=== PATIENT | female | born 1990 | race Caucasian/White ===

== ENCOUNTER 2024-07-29 08:47 | Outpatient (CLI) | payer OTHER, SELFPAY ==
--- OUTSIDE RECORDS SUMMARY | 2024-07-29 09:13 | XMS_ITS | Encounter Summary ---
Author Organization [facility] Facility Care Team Providers Care Web Services Professional Name Role Phone Unknown, Notinfile Primary Care Provider Unavail able Unknown, Notinfile Primary Care Provider Unavail able Radha Cordova MD Unavailable [phone] Иван Lucas MD Primary Care Provide r Radha Cordova MD Unavailable [phone] Divine Almaraz Primary Care Provider + Encounter Details Date Type Department Care Team (Latest Contact Info) Description 12/07/2017 Orders Only [facility]INCON[facility] Provider, MD Hanna [address] [place] [id number] Social History Tobacco Use Types Packs/Day Years Used Date Smoking Tobacco: Never Assessed Comments Unknown Sex and Gender Information Value Date Recorded Sex Assigned at Not on file Legal Sex Female 8:45 PM CURTAIN CUTTER Gender Identity Not on file Sexual Orientation Straight 04/22/2020 1: 46 PM CURTAIN CUTTER documented as of this encounter Plan of Treatment Not on file documented as of this encounter Procedures Procedure Name Priority Date/Time Associated Diagnosis Comments SCAN - LABS 12/09/2017 12:00 AM CDT documented in this encounter Results * SCAN - LABS (12/09/2017 12:00 AM CDT) Narrative 12/09/2017 12:00 AM CDT Ordered by an unspecified provider. us Historical Provider Final Res ult documented in this encounter Visit Diagnoses Not on filedocumented in this encounter Care Teams Web Services Professional Relationship Specialty Start Date End Date Unknown, Notinfile PCP - General 12/03/19 01/31/20 Unknown, Notinfile PCP - General 02/01/20 04/27/20 Иван Lucas MD PCP - General 04/28/20 11/26/23 Divine Almaraz PA [address] [address] PCP - General Family Medicine 11/27/23 Radha Cordova MD Consulting Physician Obstetrics and Gynecology 04/20/20 08/05/22 Radha Cordova MD Consulting Physician Obstetrics and Gynecology 08/06/22 documented as of this encounter
--- OUTSIDE RECORDS SUMMARY | 2024-07-29 09:13 | XMS_ITS | Clinical Summary ---
Author Organization [facility] [address] [facility] [address] [place] [address] Phone Care Team Providers Care Gauge Checker Name Role Phone Unavailable Primary Care Provider Unavailabl e Allergies Active Allergy Reactions Criticality Noted Date Comments Gluten Nausea and Vomiting,Headache Low 020 Medications PNV no.133/ferrous fum/folic ( ORAL) Take by mouth. Active Active Problems Problem Noted Date Diagnosed Date History of severe pre-eclampsia 11/16/2019 Comments Yes Family History Medical History Relation Name Comments Diabetes Mother Heart Disease Mother Breast Cancer Neg Hx Colon Cancer Neg Hx Ovarian Cancer Neg Hx Relation Name Status Comments Father Alive Mother Social History Tobacco Use Types Packs/Day Years Used Date Smoking Tobacco: Never Smokeless Tobacco: Never Alcohol Use Standard Drinks/Week Comments Not Currently 0 (1 standard drink = 0.6 oz pur e alcohol) Comments Yes Sex and Gender Information Value Date Recorded Sex Assigned at Not on file Legal Sex Female 9:24 AM CDT Gender Identity Not on file Sexual Orientation Not on file Last Filed Vital Signs Vital Sign Reading Time Taken Comments Blood Pressure 127/87 11/16/2019 10:19 AM CDT Pulse - - Temperature - - Respiratory Rate - - Oxygen Saturation - - Inhaled Oxygen Concentration - - Weight 47.8 kg (105 lb 6.4 oz) 11/16/2019 10:19 AM CDT Height 160 cm (5' 3) 11/16/2019 10:19 AM CDT Body Mass Index 18.67 11/16/2019 10:19 AM CDT Plan of Treatment Health Maintenance Due Date Last Done Comments DTAP/TDAP/TD VACCINES (1 - Tdap) 2008 HEPATITIS B VACCINES (1 of 3 - 19+ 3-dose series) 2008 HPV/Cotest (21-29) 2010 CERVICAL CANCER SCREENING 10/26/2019 HPV/Cotest (30-65) 10/26/2019 PAP SMEAR 10/26/2019 INFLUENZA VACCINE (#1) 2023 RSV VACCINE (60+ or ) (1 - 1-dose 75+ series) 2064 HPV VACCINES Aged Out No longer eligi ble based on patient's age to complete this topic Insurance
--- OUTSIDE RECORDS SUMMARY | 2024-07-29 09:13 | XMS_ITS | Encounter Summary ---
Author Organization [facility] Facility Care Team Providers Care Tube Puller Name Role Phone Unknown, Notinfile Primary Care Provider Unavail able Unknown, Notinfile Primary Care Provider Unavail able Radha Cordova MD Unavailable [phone] Иван Lucas MD Primary Care Provide r Radha Cordova MD Unavailable [phone] Divine Almaraz Primary Care Provider + Encounter Details Date Type Department Care Team (Latest Contact Info) Description 12/05/2017 Orders Only [facility] CLINCONV Provider, MD Hanna [address] [place] [id number] Social History Tobacco Use Types Packs/Day Years Used Date Smoking Tobacco: Never Assessed Comments Unknown Sex and Gender Information Value Date Recorded Sex Assigned at Not on file Legal Sex Female 8:45 PM PHARMACY CLINICAL SPECIALIST Gender Identity Not on file Sexual Orientation Straight 04/22/2020 1: 46 PM PHARMACY CLINICAL SPECIALIST documented as of this encounter Plan of Treatment Not on file documented as of this encounter Procedures Procedure Name Priority Date/Time Associated Diagnosis Comments SCAN - LABS 12/05/2017 12:00 AM CDT documented in this encounter Results * SCAN - LABS (12/05/2017 12:00 AM CDT) Narrative 12/05/2017 12:00 AM CDT Ordered by an unspecified provider. us Historical Provider Final Res ult documented in this encounter Visit Diagnoses Not on filedocumented in this encounter Care Teams Tube Puller Relationship Specialty Start Date End Date Unknown, Notinfile PCP - General 12/03/19 01/31/20 Unknown, Notinfile PCP - General 02/01/20 04/27/20 Иван Lucas MD PCP - General 04/28/20 11/26/23 Divine Almaraz PA [address] [address] PCP - General Family Medicine 11/27/23 Radha Cordova MD Consulting Physician Obstetrics and Gynecology 04/20/20 08/05/22 Radha Cordova MD Consulting Physician Obstetrics and Gynecology 08/06/22 documented as of this encounter
--- OUTSIDE RECORDS SUMMARY | 2024-07-29 09:13 | XMS_ITS | Referral Summary ---
Author Organization [facility] Address [address] [place] [address] Care Team Providers Care Metal Fabricator Welder Name Role Phone Radha Cordova MD Unavailable [phone] Divine Almaraz Primary Care Provider + Encounters Date Type Department Care Team Description 05/05/2024 3:00 PM CDT Office Visit [facility] Family Medicine [address] [address] Supriya Gilbert PA Non-recurrent acute suppurative otitis media of right ear without spontaneous rupture of tympanic membrane (Primary Dx); Acute cough from Last 3 Months Allergies Active Allergy Reactions Criticality Noted Date Comments Gluten Headache,Itching,Edda nt pain,Nausea & Vomiting,Nausea And Vomiting,Rash,Vomiting Medium 11/16/2019 Medications multivitamin with minerals capsule Take by mouth Active fluticasone propionate (FLONASE) 50 mcg/actuation nasal spray Administer 2 sprays into each nostril daily 3 each 4 4 Active benzonatate (TESSALON) 100 mg capsuleIndicatio ns:Cough Take 1 capsule (100 mg total) by mouth 3 (three) times a day as needed for cough 42 capsule 5 Active ubrogepant (UBRELVY) 50 mg tabletIndication s:Migraine without aura and without status migrainosus, not intractable Take 1 tablet (50 mg total) by mouth once as needed for migraine May repeat dose once in 2 hours if no relief. Do not exceed 2 doses in 24 hours. 10 tablet 3 5 Active Active Problems Problem Noted Date Diagnosed Date Migraine without aura and wi thout status migrainosus, not intractable 11/27/2023 Assessment & Plan (01/16/2024 2:35 PM ENDODONTICS DENTIST): Chronic, stable. Continue Ubrelvy as needed for abortive therapy Assessment & Plan (11/27/2023 10:50 AM CDT): Chronic, worsening. Start Ubrelvy PRN for abortive therapy. Tried/failed OTC including Tylenol, Ibuprofen, Excedrin. Pt has copay card to take to pharmacy History of gestational diabetes 11/27/2023 Assessment & Plan (01/16/2024 2:36 PM ENDODONTICS DENTIST): Patient is not diabetic, has history of gestational diabetes. Recent labs reviewed normal Assessment & Plan (11/27/2023 10:50 AM CDT): Repeat labs - h/o gestational diabetes needing insulin. Has not been on medications since delivery Encounter for gynecological examination without abnormal finding 01/22/2023 Assessment & Plan (01/22/2023 10:28 AM ENDODONTICS DENTIST): The patient was here for her well woman exam. Recommended healthy lifestyle choices including exercise, diet, & multivitamins. Recommend mammograms starting age 40. Discussed importance of cholesterol screening with PCP regularly. RTC 1 year or PRN. Adult celiac disease 05/07/2016 Assessment & Plan (11/27/2023 10:49 AM CDT): Chronic, stable. Continue gluten free diet. Pt doing well with this. Discussed no need for repeat blood testing. She declines GI referral since largely asymptomatic with gluten free diet. Dry eyes 05/07/2016 Resolved Problems Problem Noted Date Diagnosed Date Resolved Date Term 06/16/2020 06/18/2020 Pruritus of in third trimester 05/26/2020 06/18/2020 Overview (05/27/2020): Localized only to abdomen. Will send CMP [WNL] and bile acid [3] but distribution is not consistent with typical ICP. Labs are also being sent to Dr. Cordova. Gestational diabetes mellitu s (GDM), antepartum 04/20/2020 06/18/2020 Overview (05/31/2020): I have reviewed BG logs and patient with excellent glycemic control. I have made no changes. Recommendations: Current Regimen 05/31/2020 NPH 12 QHS Delivery at 39 weeks secondary to A2DM. 2 hr OGTT at 6 weeks PP Continue surveillance - NST/BPP Labor management: Women with GDM who have good glycemic control rarely have intrapartum hyperglycemia. Glucose control in labor may be achieved by capillary glucose assessment every 2-4 hours in the latent phase of labor and every 1-2 hours in the active phase of labor if patient is NPO. Blood glucose values should be maintained between 70-110 mg/dL during labor, and insulin can be utilized if values exceed this target range. If the patient is not taking p.o. nutrition during labor, maintenance fluids should include 5% dextrose to prevent ketosis. . History of vacuum extraction assisted delivery 04/20/2020 06/18/2020 Supervision of high-risk pre gnancy, unspecified trimester 04/20/2020 06/18/2020 Overview (04/27/2020): [x] Co-management vs. [] Full [facility] Care; [] Red Team [] Blue Team Referring Provider: Radha Cordova [phone] [x] Dating Criteria: LMP 09/16/19 FLIP 06/22/20 [x] Labs: Rh [O+], Ab [negative], Rubella [immune], HIV [non-reactive], HepBSAg [non-reactive], RPR [non-reactive], GC/CT [negative/negative] [] Genetic Screening: [x] CBC/Hgb 14.1/43.1/plt 316 [x] UCx: 11/30/19 negative [] Pap: [] LD ASA (if indicated) starting at 12 weeks: [] EPDS [ ]; PNBHS referral (if indicated) 2nd Tri Labs: [] Anatomy ultrasound: 02/01/20 [x] CBC/1hr gtt at 24-28wks: 04/08/20: 11.5/35.7/plt 333; GTT 222 [x] Flu Shot (Oct-Jan): given 11/30/19 [] Tdap (27-36wks): 3rd Tri Labs: [] CBC/HIV/RPR/T&S: [] GBS: [] GC/CT (if indicated): [] COVID testing: Counselling [] MOD: [] Place of delivery: [] MOC: [] Method of feeding: [] Alfalfa Dehydrator Operator: [] PP Depression Discussed: History of hemorr brittany, currently , unspecified trimester 04/20/2020 06/19/19 21 History of severe pre-eclampsia 11/16/2019 06/18/2020 Overview (05/26/2020): Normotensive today. No evidence of Preeclampsia. Secondary amenorrhea 11/25/2017 021 Absolute anemia 05/07/2016 06/18/2020 Immunizations Immunization Administration Dates Next Due Flucelvax Influenza Quad 01/07/2017 Influenza, Quadrivalent, Spl it, Preservative Free, Intramuscular 12/13/2018 Influenza, Trivalent, Preser vative Free, Intramuscular 11/27/2023 Influenza, Unspecified 11/28/2022(Deferred: Estrellita ent decision) Tdap 04/29/2020 Social History Tobacco Use Types Packs/Day Years Used Date Smoking Tobacco: Never Smokeless Tobacco: Never Tobacco Cessation:Counseling Given: Not Answered AUDIT-C Answer Date Recorded Q1: How often do you have a drink containing alc ohol? Monthly or less 11/27/2023 Q2: How many drinks containi ng alcohol do you have on a typical day when you are drinking? 1 or 2 11/27/2023 Q3: How often do you have si x or more drinks on one occasion? Less than monthly 11/27/2023 PHQ-2 Answer Date Recorded PHQ-2 Total Score (If total score is 3 or more points, staff should administer the PHQ-9) 0 01/15/2024 Ames Depression Scale Answer Date Recorded Ames Depression Scale Total 9 06/18/2020 The thought of harming myself has occurred to me . 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 Not on file Not on mikael e Last Filed Vital Signs Vital Sign Reading Time Taken Comments Blood Pressure 128/72 05/05/2024 3:06 PM CDT Pulse 93 05/05/2024 3:06 PM CDT Temperature 36.4 C (97.5 F) 05/05/2024 3:06 PM CDT Respiratory Rate 16 05/05/2024 3:06 PM CDT Oxygen Saturation 99% 05/05/2024 3:06 PM CDT Inhaled Oxygen Concentration - - Weight 52.6 kg (116 lb) 05/05/2024 3:06 PM CDT Height 158.8 cm (5' 2.52) 05/05/2024 3:06 PM CD T Body Mass Index 20.87 05/05/2024 3:06 PM CDT Plan of Treatment Not on file Procedures Procedure Name Priority Date/Time Associated Diagnosis Comments COMPREHENSIVE METABOLIC PANEL Routine 12/05/2023 7:06 AM CDT Migraine without aura and without status migrainosus, not intractable History of gestational diabetes Adult celiac disease HEMOGLOBIN A1C Routine 12/05/2023 7:06 AM CDT History of gestational diabetes LIPID PANEL Routine 12/05/2023 7:06 AM CDT Migraine without aura and without status migrainosus, not intractable History of gestational diabetes Adult celiac disease ALBUMIN CREATININE RATIO, URINE Routine 12/05/2023 7:06 AM CDT History of gestational diabetes PAP AND HIGH RISK HPV, REFLEX TO GENOTYPING Routine 01/22/2023 10:50 AM ENDODONTICS DENTIST Encounter for gynecological examination without abnormal finding Screening for human papillomavirus Screening for malignant neoplasm of cervix HEPATITIS C ANTIBODY Routine 11/30/2019 11:30 AM CDT from Last 3 Months or Most Recently Relevant to Health Maintenance Results * Albumin Creatinine Ratio, Urine (12/05/2023 7:06 AM CDT) Creatinine, ur 158 20 - 275 mg/dL [facility] Microalbumin, ur 0.4 See Note: mg/dL [facility] Comment: Reference Range: Reference Range Not established Microalbumin/creat ratio 3 <30 mg/g creat [facility] Comment: The ADA defines abnormalities in albumin excretion as follows: Albuminuria Category Result (mg/g creatinine) Normal to Mildly increased <30 Moderately increased 30-299 Severely increased > OR = 300 The ADA recommends that at least two of three specimens collected within a 3-6 month period be abnormal before considering a patient to be within a diagnostic category. Urine 12/05/2023 7:06 AM CDT 12/05/2023 7:07 AM CDT Narrative [facility] - 12/06/2023 12:57 PM CDT FASTING:YES FASTING: YES Divine SLOAN LAB URINE ORDERABLES Fin al Result [facility] [address] [place] [address] * Hemoglobin A1c (12/05/2023 7:06 AM CDT) Hgb A1C 5.6 <5.7 % of total Hgb [facility] Comment: For the purpose of screening for the presence of diabetes: <5.7% Consistent with the absence of diabetes 5.7-6.4% Consistent with increased risk for diabetes (prediabetes) > or =6.5% Consistent with diabetes This assay result is consistent with a decreased risk of diabetes. Currently, no consensus exists regarding use of hemoglobin A1c for diagnosis of diabetes in children. According to [place] Diabetes Association (ADA) guidelines, hemoglobin A1c <7.0% represents optimal control in non- diabetic patients. Different metrics may apply to specific patient populations. Standards of Medical Care in Diabetes(ADA). Blood 12/05/2023 7:06 AM CDT 12/05/2023 7:07 AM CDT Narrative [facility] - 12/06/2023 12:57 PM CDT FASTING:YES FASTING: YES Divine SLOAN LAB BLOOD ORDERABLES Fin al Result [facility] [address] [place] [address] * Lipid panel (12/05/2023 7:06 AM CDT) [facility] Cholesterol 166 <200 mg/dL [facility] HDL 50 > OR = 50 mg/dL [facility] Triglycerides 136 <150 mg/dL [facility] LDL 93 mg/dL (calc) [facility] Comment: Reference range: <100 Desirable range <100 mg/dL for primary prevention; <70 mg/dL for patients with CHD or diabetic patients with > or = 2 CHD risk factors. LDL-C is now calculated using the Jarrell-Squires calculation, which is a validated novel method providing better accuracy than the Friedewald equation in the estimation of LDL-C. Jarrell SS et al. LEIDA. 2013;310(19): 3534-4847 (http://education.[employer]/faq/YRO977) Chol/HDL ratio 3.3 <5.0 (calc) [facility] Non-HDL, (LDL+VLDL) 116 <130 mg/dL (calc) [facility] Comment: For patients with diabetes plus 1 major ASCVD risk factor, treating to a non-HDL-C goal of <100 mg/dL (LDL-C of <70 mg/dL) is considered a therapeutic option. Blood 12/05/2023 7:06 AM CDT 12/05/2023 7:07 AM CDT Narrative [facility] - 12/06/2023 12:57 PM CDT FASTING:YES FASTING: YES Divine SLOAN LAB BLOOD ORDERABLES Fin al Result [facility] [address] [address] * (ABNORMAL) Comprehensive metabolic panel (12/05/2023 7:06 AM CDT) Glucose 100(H) 65 - 99 mg/dL [facility] Comment: Fasting reference interval For someone without known diabetes, a glucose value between 100 and 125 mg/dL is consistent with prediabetes and should be confirmed with a follow-up test. BUN 16 7 - 25 mg/dL [facility] Creatinine 0.79 0.50 - 0.97 mg/dL [facility] eGFR 101 > OR = 60 mL/min/1.7 3m2 [facility] BUN/creat ratio SEE NOTE: 6 - 22 (calc) [facility] Comment: Not Reported: BUN and Creatinine are within reference range. Sodium 136 135 - 146 mmol/L [facility] Potassium, pl 4.4 3.5 - 5.3 mmol/L [facility] Chloride 101 98 - 110 mmol/L [facility] CO2 27 20 - 32 mmol/L [facility] Calcium 9.9 8.6 - 10.2 mg/dL [facility] Protein, sr 7.4 6.1 - 8.1 g/dL [facility] Albumin 4.6 3.6 - 5.1 g/dL [facility] GLOBULIN 2.8 1.9 - 3.7 g/dL (calc) [facility] Alb/glob ratio 1.6 1.0 - 2.5 (calc) [facility] Bilirubin, total 0.3 0.2 - 1.2 mg/dL [facility] Alk phos 67 31 - 125 U/L [facility] AST 20 10 - 30 U/L [facility] ALT (SGPT) 30(H) 6 - 29 U/L [facility] Blood 12/05/2023 7:06 AM CDT 12/05/2023 7:07 AM CDT Narrative [facility] - 12/06/2023 12:57 PM CDT FASTING:YES FASTING: YES us Divine SLOAN LAB BLOOD ORDERABLES Fin al Result [facility] [address] [place] [address] * Pap and High Risk HPV and Genotyping (Cytology Component) (01/22/2023 10:50 AM ENDODONTICS DENTIST) Thin prep (Pap test) 01/22/2023 10:50 AM ENDODONTICS DENTIST 01/24/2023 3:09 PM ENDODONTICS DENTIST Narrative PATHOLOGY [facility] - 01/30/2023 4:17 PM ENDODONTICS DENTIST EPIC results best viewed via link to PDF [address] [address] Tele: Chelita Watkins MD - Marketing Campaign Analyst CYTOLOGY REPORT Note to Patients: This report may contain a detailed description of human tissue sent by a health care provider to the laboratory for pathologic evaluation. The content of this report is essential for diagnosis and may provide important critical findings. This information may be unfamiliar to patients to review without a medical professional present. It is advised that the patient review this report in the presence of a health care provider who can answer questions and explain the details. Patient Name: LOLIS SUÁREZ Address: [address] [place] [address] Gender: F : 1990 (Age: 32) Service: Location: [facility] #: [id number] Patient Type: [facility] SPECIMEN Taken: 01/22/2023 Reported: 01/30/2023 Physician(s): OJSH Rushing FINAL DIAGNOSIS: SOURCE OF SPECIMEN - ThinPrep Pap and HPV w/ reflex Genotyping: STATEMENT OF ADEQUACY Source: Cervical/Endocervical - Satisfactory for interpretation - Endocervical /Transformation Zone component present - Case screened using computer assisted imaging technology GENERAL CATEGORIZATION: - Negative for intraepithelial lesion or malignancy 01/30/2023 16:17LALA Boyd(ASCP), CFIAC Report Reviewed and Electronically Signed By LALA Boyd(ASCP), CFIACClerical Data Follow A; [id number] DIAGNOSIS COMMENT: Ancillary Testing: HPV Genotype 16 - Not Detected Reference Range: Not Detected HPV Genotype 18 - Not Detected Reference Range: Not Detected HPV High Risk Group (31, 33, 35, 39, 45, 51, 52, 56, 58, 59, 66 and 68) - Not Detected Reference Range: Not Detected This test was performed using the MOOK 4800 CLINICAL DIAGNOSIS AND HISTORY Last Menstrual Period: 01/01/23 REPORT IMAGES AND/OR SCANNED DOCUMENTS ONLY VIEWABLE IN PDF FORMAT The Pap test is a screening test used to aid in the detection of cervical cancer and its precursors. It should not be the sole means by which malignant and premalignant lesions are diagnosed. Both false negative and false positive results may occur. It also has poor sensitivity for the detection of endometrial lesions and should not be used to evaluate suspected endometrial abnormalities. For these reasons it is most important to obtain Pap tests at regular intervals, as recommended by your physician or nurse practitioner. us Jovana Jerry AT RISK SPECIALIST LAB CYTOLOGY ORDERABLES F inal Result PATHOLOGY [facility] Laboratory Receiving [address] [place] [address] * Hepatitis C antibody (11/30/2019 11:30 AM CDT) Hep C Ab Nonreactive Nonreactive [facility] Comment: Interpretive Data Nonreactive: Antibodies to HCV not detected. Does NOT exclude the possibility of recent exposure to HCV. Equivocal: Equivocal for HCV antibodies. Supplemental molecular testing will be automatically performed to determine infection status in accordance with current CDC screening recommendations. Reactive: Positive for HCV antibodies. This may represent current or past HCV infection. Supplemental molecular testing will be automatically performed to determine current infection status in accordance with current CDC screening recommendations. Interpretive data was last revised on 2019. Blood specimen (specimen) 11/30/2019 11:30 AM CDT 11/30/2019 12:40 PM CDT us Notinfile Unknown LAB MICROBIOLOGY - GENERAL ORD ERABLES Final Result [facility] [address] Department [place] [address] from Last 3 Months or Most Recently Relevant to Health Maintenance Insurance [facility] [employer] [facility] HMO/PPO Address: [address] [place] [address] [facility] [employer] [facility] HMO/PPO Address: [address] [place] [address] [facility] [employer] [facility]/PPO Address: [place] [address] Advance Directives For more information, please contact: [phone] * Full Code (Latest Code Status on File) Date Activated Date Inactivated Comments 06/16/2020 5:28 PM 06/18/2020 9:05 PM * Full Code Date Activated Date Inactivated Comments 06/16/2020 12:38 AM 06/16/2020 5:28 PM Full CPR in c ase of cardiopulmonary arrest Care Teams Metal Fabricator Welder Relationship Specialty Start Date End Date Divine Almaraz PA [address] [facility] [address] [place], [place] [id number] PCP - General Family Medicine 11/27/23 Radha Cordova MD Consulting Physician Obstetrics and Gynecology 08/06/22
--- OUTSIDE RECORDS SUMMARY | 2024-07-29 09:13 | XMS_ITS | Clinical Summary ---
Author Organization [facility] Address [address] [place] [address] Care Team Providers Care Senior Web Developer Name Role Phone Radha Cordova MD Unavailable [phone] Divine Almaraz Primary Care Provider + Allergies Active Allergy Reactions Criticality Noted Date [...] 11/27/2023 Assessment & Plan (01/16/2024 2:35 PM ONCOLOGY REP): Chronic, stable. Continue Ubrelvy as needed for abortive therapy Assessment & Plan (11/27/2023 10:50 AM CDT): Chronic, worsening. Start Ubrelvy PRN for abortive therapy. Tried/failed OTC including Tylenol, Ibuprofen, Excedrin. Pt has copay card to take to pharmacy History of gestational diabetes 11/27/2023 Assessment & Plan (01/16/2024 2:36 PM ONCOLOGY REP): Patient is not diabetic, has history of gestational diabetes. Recent labs reviewed normal Assessment & Plan (11/27/2023 10:50 AM CDT): Repeat labs - h/o gestational diabetes needing insulin. Has not been on medications since delivery Encounter for gynecological examination without abnormal finding 01/22/2023 Assessment & Plan (01/22/2023 10:28 AM ONCOLOGY REP): The patient was here for her well [...] Overview (04/27/2020): [x] Co-management vs. [] Full MFM Care; [] Red Team [] Blue Team Referring Provider: Radha Cordova [phone] [x] Dating Criteria: LMP 09/16/19 FLIP 06/22/20 [...] [] MOC: [] Method of feeding: [] Senior Javascript Developer: [] PP Depression Discussed: History of hemorr brittany, currently , unspecified trimester 04/20/2020 06/19/19 21 History of severe pre-eclampsia 11/16/2019 06/18/2020 Overview (05/26/2020): Normotensive today. No evidence of Preeclampsia. Secondary amenorrhea 11/25/2017 021 Absolute anemia 05/07/2016 06/18/2020 Encounters Date Type Department Care Team Description 05/05/2024 3:00 PM CDT Office Visit [facility] Family Medicine [address] [place] [id number] Supriya Gilbert PA Non-recurrent acute suppurative otitis media of right ear without spontaneous rupture of tympanic membrane (Primary Dx); Acute cough from Last 3 Months Immunizations Immunization Administration Dates Next Due Flucelvax Influenza Quad 01/07/2017 Influenza, Quadrivalent, Spl it, Preservative Free, Intramuscular 12/13/2018 Influenza, Trivalent, Preser vative Free, Intramuscular 11/27/2023 Influenza, Unspecified 11/28/2022(Deferred: Estrellita ent decision) Tdap 04/29/2020 Surgical History Surgery Date Site/Laterality Comments APPENDECTOMY VAGINAL DELIVERY 06/16/2020 Female - [place]; PP hemorrhage, Bakri balloon post delivery VACUUM ASSISTED VAGINAL DELIVERY 11/29/2018 Female - [place] CYST REMOVAL Vulvar cyst after first baby Medical History Medical History Date Comments Celiac disease Autoimmune disorder Anemia 2020 - had Bakri balloon post delivery Gestational diabetes 2020 GDMA2 - rec given for 2hr GCT Preeclampsia Autoimmune disease About 6 years ago Family History Medical History Relation Name Comments Celiac disease Brother Hearing loss Brother Hyperlipidemia Father No Known Problems Maternal Grandfather Arthritis Maternal Grandmother Wen Morris Arthritis Mother Allie Morris Clotting disorder Mother Allie Morris Diabetes Mother Allie Morris Heart disease Mother Allie Morris Kidney disease Mother Allie Morris Stroke Mother Allie Morris Memory loss Paternal Grandfather Arthritis Paternal Grandmother Memory loss Paternal Grandmother Diabetes Sister Sasha Thomas Relation Name Status Comments Brother Alive Father Alive Maternal Grandfather Maternal Grandmother Wen Morris Mother Allie Morris Paternal Grandfather Alive Paternal Grandmother Alive Sister Sasha Thomas Alive Social History Tobacco Use Types Packs/Day Years [...] staff should administer the PHQ-9) 0 01/15/2024 [place] Depression Scale Answer Date Recorded [place] Depression Scale Total 9 06/18/2020 The thought of harming myself has occurred to me . 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 Edward post hemorrhage 2020 Term 39w 1d 0h 26m 0h 08m/0h 18m 3.2 kg (7 lb 0.9 oz) F Vag-S pont Epidur al N Livin g 9 9 BLAS ING,G IRLJE NNIFE R Radha Campbell MD Complications:Post He morrhage Delivery Location:[facility]) Comments: he morrhage, Bakri balloon placement, [facility] Last Filed Vital Signs Vital Sign Reading [...] 05/05/2024 3:06 PM CDT Plan of Treatment Health Maintenance Due Date Last Done Comments Dilated Eye Exam 1990 Foot Exam 1990 Varicella Vaccines (1 of 2 - 13+ 2-dose series) 2002 Hepatitis B Screening 10/26/2007 Pneumococcal vaccine <65 (1 of 2 - PCV) 2008 Covid-19 Vaccine ( - season) 2023 10/24/2020, 10/03/2020 Cervical Cancer Screening 01/23/2024 01/22/2023, 01/2023 Regular Well Visit/Exam 18-64 01/23/2024 01/22/2023 Hemoglobin A1C 06/04/2024 12/05/2023 Albumin Creatinine Ratio, Urine 12/04/2024 12/05/2023 Lipid Panel 12/04/2024 12/05/2023 eGFR 12/04/2024 12/05/2023, 05/0 07/2020, 06/03/2020, Additional history exists Depression Screening 01/14/2025 01/15/2024, 11/27/2023, 06/18/2020 DTaP/Tdap/Td Vaccine (2 - Td or Tdap) 04/29/2030 04/29/2020 Hepatitis C Screening Completed 11/30/2019 Influenza Vaccine Completed 11/27/2023, , 01/07/2017 HPV Vaccines Aged Out No longer eligi ble based on patient's age to complete this topic Procedures Procedure Name Priority Date/Time Associated Diagnosis [...] REFLEX TO GENOTYPING Routine 01/22/2023 10:50 AM ONCOLOGY REP Encounter for gynecological examination without abnormal finding [...] SLOAN LAB URINE ORDERABLES Fin al Result Performing Organization Address [facility]/ZIP Co de Phone Number [email or web address] [address] [place] [address] * Hemoglobin A1c (12/05/2023 7:06 AM CDT) Hgb A1C 5.6 <5.7 % of total Hgb [facility] Comment: For the purpose of screening for the presence of diabetes: <5.7% Consistent with the absence of diabetes 5.7-6.4% Consistent with increased risk for diabetes (prediabetes) > or =6.5% Consistent with diabetes This assay result is consistent with a decreased risk of diabetes. Currently, no consensus exists regarding use of hemoglobin A1c for diagnosis of diabetes in children. According to [place] Diabetes Association (ADA) guidelines, hemoglobin A1c <7.0% represents optimal control in non- diabetic patients. Different metrics may apply to specific patient populations. Standards of Medical Care in Diabetes(ADA). Blood 12/05/2023 7:06 AM CDT 12/05/2023 7:07 AM CDT Narrative [facility] - 12/06/2023 12:57 PM CDT FASTING:YES FASTING: YES Divine SLOAN LAB BLOOD ORDERABLES Fin al Result Performing Organization Address [facility]/ZIP Co de Phone Number [facility] [address] [place] [address] * Lipid panel (12/05/2023 7:06 AM CDT) Cholesterol 166 <200 mg/dL [facility] [...] factors. LDL-C is now calculated using the Justin calculation, which is a validated novel method providing better accuracy than the Friedewald equation in the estimation of LDL-C. Jarrell CHRISTIE et al. LEIDA. 2013;310(19): 8091-6581 (http://education.[employer]/faq/TUY964) Chol/HDL ratio 3.3 <5.0 (calc) [facility] [...] SLOAN LAB BLOOD ORDERABLES Fin al Result [facility] [address] [place] [address] * (ABNORMAL) Comprehensive metabolic panel (12/05/2023 7:06 AM CDT) [facility] Glucose 100(H) 65 - 99 mg/dL [facility] [...] BLOOD ORDERABLES Fin al Result [facility] [address] [place] [address] * Pap and High Risk HPV and Genotyping (Cytology Component) (01/22/2023 10:50 AM ONCOLOGY REP) Thin prep (Pap test) 01/22/2023 10:50 AM ONCOLOGY REP 01/24/2023 3:09 PM ONCOLOGY REP Narrative PATHOLOGY [facility] - 01/30/2023 4:17 PM ONCOLOGY REP EPIC results best viewed via link to PDF [address] [address] Tele: Chelita Watkins MD - Manager Enterprise Content Management CYTOLOGY REPORT Note to Patients: This report [...] and explain the details. Patient Name: LOLIS TORRES Address: [address] [place] [address] Gender: F : 1990 (Age: 32) Service: Location: [facility] #: [id number] Patient Type: [facility] SPECIMEN Taken: 01/22/2023 Reported: 01/30/2023 Physician(s): JOSH Rushing FINAL DIAGNOSIS: SOURCE OF SPECIMEN - ThinPrep Pap and HPV w/ reflex Genotyping: STATEMENT OF ADEQUACY Source: Cervical/Endocervical - Satisfactory for interpretation - Endocervical /Transformation Zone component present - Case screened using computer assisted imaging technology GENERAL CATEGORIZATION: - Negative for intraepithelial lesion or malignancy /01/30/2023 16:17LALA Boyd(ASCP), CFIAC Report Reviewed and Electronically [...] physician or nurse practitioner. us Jovana Jerry NP LAB CYTOLOGY ORDERABLES F inal Result Performing Organization Address [facility]/ZIP Co de Phone Number PATHOLOGY [facility] Laboratory Receiving [address] [place] [address] * Hepatitis C antibody (11/30/2019 11:30 AM CDT) Hep C Ab Nonreactive Nonreactive [facility] Comment: Interpretive Data Nonreactive: Antibodies to HCV [...] MICROBIOLOGY - GENERAL ORD ERABLES Final Result Performing Organization Address [facility] Co de Phone Number [facility] [address] [place] [address] from Last 3 Months or Most Recently Relevant to Health Maintenance Insurance [facility] CHOICE PLUS [facility] CHOICE PLUS [place] [id number] [facility] CHOICE PLUS Advance Directives For more information, please contact: [phone] * Full Code (Latest Code Status on File) Date Activated Date Inactivated Comments 06/16/2020 5:28 PM 06/18/2020 9:05 PM * Full Code Date Activated Date Inactivated Comments 06/16/2020 12:38 AM 06/16/2020 5:28 PM Full CPR in c ase of cardiopulmonary arrest Care Teams Senior Web Developer Relationship Specialty Start Date End Date Divine Almaraz PA [address] [facility] [address] [place] [address] PCP - General Family Medicine 11/27/23 Radha Cordova MD Consulting Physician Obstetrics and Gynecology 08/06/22
== END 2024-07-29 08:48 | disposition home or self-care (01) ==
LOC: ANHAUDIO 08:48
PROVIDERS: Visit Provider Otolaryngology
DX: H90.3 Sensorineural hearing loss, bilateral (principal)
CPT/HCPCS: 92557; 92567